=== PATIENT | male | born 1955 | race American Indian/Alaskan Native ===

== ENCOUNTER 2016-08-05 11:53 | Emergency (ER) | payer OTHER ==
[2016-08-05 12:08] VITALS: BP 151/97
[2016-08-05] MEDS ORDERED: TYLENOL PO ONE (12:23)
--- NOTE | 2016-08-05 13:23 | XRay Report ---
Cervical spine 4 views: History: Neck pain. Findings: Normal height of vertebral bodies. Decrease in height of C3-C4 C5-C6 and C6-7. Sclerotic adjacent articular surfaces with osteophyte suggestive of cervical spondylosis. No fracture. Normal prevertebral soft tissue. Impression: Cervical spondylosis.
--- NOTE | 2016-08-05 13:25 | XRay Report ---
Lumbar spine 3 views: History: Elbow pain. Findings: Normal height of vertebral bodies and intervertebral disc sclerotic articular surfaces with peripheral osteophytes suggesting degenerative changes. No fracture. Calcification of abdominal aorta with suspicion of aneurysm at L4. Impression: Degenerative lumbar spine.
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
== END 2016-08-05 13:45 | disposition home or self-care (01) ==
LOC: ED 11:53
DX: M54.5 Low back pain (principal); M54.2 Cervicalgia; F17.200 Nicotine dependence, unspecified, uncomplicated; V49.49XA Driver injured in collision with other motor vehicles in traffic accident, initial encounter; Y93.9 Activity, unspecified; Y92.9 Unspecified place or not applicable; Y99.9 Unspecified external cause status
CPT/HCPCS: 72040; 72100; 99284